=== PATIENT | male | born 1960 | race Caucasian/White ===

== ENCOUNTER 2017-05-23 16:47 | Emergency (ER) | payer OTHER | END 2017-05-23 16:56 | disposition left against medical advice (07) | LOC: CED 16:47 | DX: Z53.21 Procedure and treatment not carried out due to patient leaving prior to being seen by health care provider (principal) ==

== ENCOUNTER 2017-08-27 15:01 | Emergency (ER) | payer OTHER ==
[2017-08-27 15:13] VITALS: RESP 16
--- NOTE | 2017-08-27 15:31 | EDPHY ---
H & P Stated Complaint: Heart fluttering, "abnormal EKG" Time Seen by Provider: 08/27/17 15:30 HPI/ROS: CHIEF COMPLAINT: Palpitations HISTORY OF PRESENT ILLNESS: The patient has a history of stomach cancer. He is currently receiving chemotherapy. He is status post radiation. The patient was following up with his radiation oncologist today when he reported a several week history of intermittent palpitations. The patient describes a sensation of a skipped beat. The patient reportedly had an EKG performed which demonstrated "an abnormality" and he was referred to the ED for further workup. The patient denies any chest pain or shortness of breath. He currently denies any complaints of an arrhythmia. He does describe tachycardia, presyncope or any additional symptoms. REVIEW OF SYSTEMS: A comprehensive 10 point review of systems is otherwise negative aside from elements mentioned in the history of present illness. Source: Patient Exam Limitations: No limitations - Personal History Current Tetanus/Diphtheria Vaccine: Unsure Current Tetanus Diphtheria and Acellular Pertussis (TDAP): Unsure - Medical/Surgical History Hx Asthma: No Hx Chronic Respiratory Disease: No Hx Diabetes: No Hx Cardiac Disease: No Hx Renal Disease: No Hx Cirrhosis: No Hx Alcoholism: No Hx HIV/AIDS: No Hx Splenectomy or Spleen Trauma: No Other PMH: Stomach cancer, ortho surgery, umbilical hernia surgery - Social History Smoking Status: Never smoked - Physical Exam Exam: General Appearance: Alert, no distress Eyes: Pupils equal and round no pallor or injection ENT, Mouth: Mucous membranes moist Respiratory: There are no retractions, lungs are clear to auscultation Cardiovascular: Regular rate and rhythm Gastrointestinal: Abdomen is soft and nontender, no masses, bowel sounds normal Neurological: A&O, normal motor function, normal sensory exam, normal cranial nerves Skin: Warm and dry, no rashes Musculoskeletal: Neck is supple nontender Extremities: symmetrical, full range of motion Constitutional: Initial Vital Signs Temperature (C) 36.4 C 08/27/17 15:08 Heart Rate 82 08/27/17 15:08 Respiratory Rate 16 08/27/17 15:08 Blood Pressure 118/72 08/27/17 15:08 O2 Sat (%) 95 08/27/17 15:08 O2 Delivery Mode Room Air Allergies/Adverse Reactions: No Known Allergies Allergy (Verified 08/27/17 15:06) Home Medications: Medication Instructions Recorded Omeprazole 08/27/17 Medical Decision Making - Diagnostics EKG Interpretation: EKG: Complete interpretation has been separately recorded in the [facility] archive. Summary impression: Sinus rhythm, no arrhythmia ED Course/Re-evaluation: The patient had an IV established. He was placed on a upholstery restorer. He was observed in the emergency department on telemetry without any obvious arrhythmia noted. He has no complaints of chest pain or shortness of breath. The patient denies any additional complaints. At this point time the etiology of his palpitations is uncertain. It is certainly possible he is having episodic PVCs. The patient's laboratory studies are unremarkable. I do feel the patient can follow up with Cardiology for consideration of a Holter monitor for any ongoing symptoms. He is been advised to return to the ED for any chest pain, tachycardia, difficulty breathing or other concerns. Differential Diagnosis: Differential diagnosis considered includes PVCs, atrial fibrillation, dehydration, metabolic abnormality, SVT - Data Points Laboratory Results: Laboratory Results 08/27/17 15:35 08/27/17 15:35 08/27/17 08/27/17 08/27/17 15:35 15:35 15:35 WBC 4.00 10^3/uL 10^3/uL (3.80-9.50) RBC 3.93 10^6/uL L 10^6/uL (4.40-6.38) Hgb 13.3 g/dL L g/dL (13.7-17.5) Hct 37.5 % L % (40.0-51.0) MCV 95.4 fL fL (81.5-99.8) MCH 33.8 pg pg (27.9-34.1) MCHC 35.5 g/dL g/dL (32.4-36.7) RDW 13.4 % % (11.5-15.2) Plt Count 85 10^3/uL L 10^3/uL (150-400) MPV 10.7 fL fL (8.7-11.7) Neut % (Auto) 79.9 % H % (39.3-74.2) Lymph % (Auto) 6.3 % L % (15.0-45.0) [place] % (Auto) 12.5 % % (4.5-13.0) Eos % (Auto) 0.3 % L % (0.6-7.6) Baso % (Auto) 0.5 % % (0.3-1.7) Nucleat RBC Rel Count 0.0 % % (0.0-0.2) Absolute Neuts (auto) 3.20 10^3/uL 10^3/uL (1.70-6.50) Absolute Lymphs (auto) 0.25 10^3/uL L 10^3/uL (1.00-3.00) Absolute Monos (auto) 0.50 10^3/uL 10^3/uL (0.30-0.80) Absolute Eos (auto) 0.01 10^3/uL L 10^3/uL (0.03-0.40) Absolute Basos (auto) 0.02 10^3/uL 10^3/uL (0.02-0.10) Absolute Nucleated RBC 0.00 10^3/uL 10^3/uL (0-0.01) Immature Gran % 0.5 % % (0.0-1.1) Immature Gran # 0.02 10^3/uL 10^3/uL (0.00-0.10) Sodium 137 mEq/L mEq/L (134-144) Potassium 4.2 mEq/L mEq/L (3.5-5.2) Chloride 101 mEq/L mEq/L (97-110) Carbon Dioxide 26 mEq/l mEq/l (22-31) Anion Gap 10 mEq/L mEq/L (8-16) BUN 20 mg/dL mg/dL (7-23) Creatinine 0.8 mg/dL mg/dL (0.7-1.3) Estimated GFR > 60 Glucose 84 mg/dL mg/dL (70-100) Calcium 9.0 mg/dL mg/dL (8.5-10.4) Troponin I < 0.012 ng/mL ng/mL (0.000-0.034) Departure - Departure Disposition: Home, Routine, Self-Care Clinical Impression: Palpitations Condition: Good Instructions: Palpitations (ED) Additional Instructions: 1. Please return to the ED for any worsening symptoms such as chest pain, a persistently elevated heart rate, difficulty breathing or for any additional concerns. 2. Please follow up with Cardiology for any ongoing palpitations as additional testing such as a Holter monitor may be indicated. Dr. Valencia is our on-call e learning manager and would be happy to see you in follow-up. Referrals: Luther Warren MD [Primary Care Provider] - As per Instructions Luther Valencia MD [Medical Doctor] - As per Instructions
--- NOTE | 2017-08-27 15:32 | CPEKG ---
Heart Rate: 80 RR Interval: 750 P-R Interval: 140 QRSD Interval: 82 QT Interval: 356 QTC Interval: 411 P [place]: 42 QRS [place]: 62 T Wave [place]: 27 EKG Severity - NORMAL ECG - EKG Impression: SINUS RHYTHM Electronically Signed By: Ronny Cash 27-Aug-2017 15:51:32
[2017-08-27 16:10] LABS: % IMMATURE GRANULYOCYTES 0.5 % (0.0-1.1); ABSOLUTE IMMATURE GRANULOCYTES 0.02 10^3/uL (0.00-0.10); ADD DIFF? NO; ADD MORPH? NO; ADD SCAN? NO; ATYPICAL LYMPHOCYTE FLAG 0 (0-99); FRAGMENT RBC FLAG 0 (0-99); HEMATOCRIT 37.5 % (40.0-51.0); HEMOGLOBIN 13.3 g/dL (13.7-17.5); LEFT SHIFT FLG 0 (0-99); LIPEMIA HEMOLYSIS FLAG 90 (0-99); MEAN CELL HEMOGLOBIN 33.8 pg (27.9-34.1); MEAN CELL HEMOGLOBIN CONCENTR. 35.5 g/dL (32.4-36.7); MEAN CELL VOLUME 95.4 fL (81.5-99.8); MEAN PLATELET VOLUME 10.7 fL (8.7-11.7); PLATELET CLUMPS FLAG 0 (0-99); PLATELET COUNT 85 10^3/uL (150-400); RED BLOOD CELL COUNT 3.93 10^6/uL (4.40-6.38); RED CELL DISTRIBUTION WIDTH 13.4 % (11.5-15.2)
[2017-08-27 16:23] LABS: ANION GAP 10 mEq/L (8-16); CARBON DIOXIDE 26 mEq/l (22-31); CHLORIDE 101 mEq/L (97-110); CREATININE 0.8 mg/dL (0.7-1.3); GLOMERULAR FILTRATION RATE > 60; GLUCOSE 84 mg/dL (70-100); POTASSIUM 4.2 mEq/L (3.5-5.2); SODIUM 137 mEq/L (134-144)
[2017-08-27 16:46] VITALS: BP 117/70; PULSE 71; TEMP 97.7; O2SAT 98
== END 2017-08-27 16:46 | disposition home or self-care (01) ==
DX: R00.2 Palpitations (principal); Z85.028 Personal history of other malignant neoplasm of stomach